=== PATIENT | female | born 1965 | race African-American/Black ===

== ENCOUNTER 2017-09-13 14:48 | Inpatient (IN) | payer OTHER ==
[2017-09-13 17:20] VITALS: BMI 17.8
--- NOTE | 2017-09-13 20:24 | HP ---
Admission ROS [facility] - [place] [employer] Chief Complaint: SEEKING IN PATIENT REHAB SERVICES AFTER DETOX Allergies/Adverse Reactions: Allergies Allergy/AdvReac Type Severity Reaction Status Date / Time egg Allergy Verified 09/13/17 18:48 Penicillins Allergy Verified 09/13/17 18:48 History of Present Illness: 52 y.o. female with long hx/o alcoholism here for inpatient rehab services. Client completed detox today at [facility] and was referred here. this is her first time here but is known to other inpatient detox/rehab services. Client reports longest clean time 6 YEARS. Reports pmhx of CLL remission for 5 years, Bipolar. Denies present and past si/hi and a/v hallucinations Exam Limitations: No Limitations - Ebola screening Have you traveled outside of the country in the last 21 days: No (N) Have you had contact with anyone from an Ebola affected area: No Have you been sick,other than usual withdrawal symptoms: No Do you have a fever: No - Review of Systems Constitutional: Loss of Appetite, Changes in sleep, Unintentional Wgt. Loss EENT: reports: Dental Problems (upper dentures) Respiratory: reports: No Symptoms reported Cardiac: reports: No Symptoms Reported GI: reports: Nausea, Poor Appetite, Poor Fluid Intake : reports: No Symptoms Reported Musculoskeletal: reports: No Symptoms Reported Integumentary: reports: No Symptoms Reported Neuro: reports: No Symptoms reported Endocrine: reports: No Symptoms Reported Hematology: reports: No Symptoms Reported Psychiatric: reports: Depressed Other Systems: Reviewed and Negative Patient History - Patient Medical History Hx Anemia: No Hx Asthma: No Hx Chronic Obstructive Pulmonary Disease (COPD): No Hx Cancer: Yes (CHRONIC LYMPHATIC LEUKEMIA REMISSION 5YEARS) Hx Cardiac Disorders: No Hx Congestive Heart Failure: No Hx Hypertension: No Hx Hypercholesterolemia: No Hx Pacemaker: No HX Cerebrovascular Accident: No Hx Seizures: No Hx Dementia: No Hx Diabetes: No Hx Gastrointestinal Disorders: Yes (GERD) Hx Liver Disease: No Hx Genitourinary Disorders: No Hx Sexually Transmitted Disorders: Yes (GENITAL HERPES) Hx Renal Disease (ESRD): No Hx Thyroid Disease: No Hx Human Immunodeficiency Virus (HIV): No Hx Hepatitis C: No Hx Depression: Yes Hx Suicide Attempt: No Hx Bipolar Disorder: Yes Hx Schizophrenia: No Other Medical History: DENIES - Patient Surgical History Past Surgical History: Yes Hx Abdominal Surgery: Yes (GASTRIC BYPASS) Hx Cholecystectomy: Yes Hx Hysterectomy: Yes (STILL WITH OVARIES) Other Surgical History: BILAT OVARIAN CYSTECTOMY Anesthesia Reaction: No - PPD History Previous Implant?: Yes Documented Results: Negative w/proof Implanted On Prior R Admission?: No Date: 09/09/17 (AT [facility]/ COPY PROVIDED) Results: 0MM PPD to be Administered?: No - Reproductive History Patient is a Female of Child Bearing Age (11 -55 yrs old): Yes LMP comment: MENAPAUSE Patient : No ([facility] [place]) - Smoking Cessation Smoking history: Current every day smoker Have you smoked in the past 12 months: Yes Aproximately how many cigarettes per day: 40 Cigars Per Day: 0 Hx Chewing Tobacco Use: No Initiated information on smoking cessation: Yes 'Breaking Loose' booklet given: 09/13/17 - Substance & Tx. History Hx Alcohol Use: Yes Hx Substance Use: Yes Substance Use Type: Alcohol, Marijuana Hx Substance Use Treatment: Yes ([facility]) - Substances Abused BEER Route: Oral Frequency: Daily Amount used: 12/12 OZ CANS Age of first use: 11 Date of Last Use: 09/06/17 THC Route: Smoking Frequency: 1-2 times per week Amount used: 2 JOINTS Age of first use: 52 Date of Last Use: 09/06/17 Family Disease History - Family Disease History Family History: Denies Family Disease History: Other: Mother (ETOH ABUSE), Brother (ETOH ABUSE) Admission Physical Exam S - Vital Signs Vital Signs: Vital Signs - 24 hr 09/13/17 17:18 Temperature 99.1 F Pulse Rate 90 Respiratory 19 Rate Blood Pressure 138/83 - Physical General Appearance: Yes: Appropriately Dressed, Tremorous (FELT), Anxious HEENTM: Yes: EOMI, Normocephalic, Normal Voice, MARLIN, Pharynx Normal, Other ( LARGE LYMPH NODE NOTED TO L NECK) Respiratory: Yes: Chest Non-Tender, Lungs Clear, Normal Breath Sounds, No Respiratory Distress, No Accessory Muscle Use Neck: Yes: Other (LARGE LYMPH NODE TO LEFT NECK) Breast: Yes: Breast Exam Deferred Cardiology: Yes: Regular Rhythm, S1, S2, Tachycardia Abdominal: Yes: Non Tender, Soft, Surgical Scar Genitourinary: Yes: Within Normal Limits Back: Yes: Normal Inspection Musculoskeletal: Yes: full range of Motion, Gait Steady Extremities: Yes: Normal Capillary Refill, Normal Range of Motion, Non-Tender, Tremors Neurological: Yes: 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 NML intact, Fully Oriented, Alert, Motor Strength 5/5 Integumentary: Yes: Normal Color, Dry, Warm Lymphatic: Yes: Within Normal Limits - Diagnostic (1) Uncomplicated alcohol dependence Current Visit: Yes Status: Chronic (2) Cannabis abuse, uncomplicated Current Visit: Yes Status: Chronic (3) Nicotine dependence Current Visit: Yes Status: Chronic Qualifiers: Nicotine product type: cigarettes Substance use status: uncomplicated Qualified Code(s): F17.210 - Nicotine dependence, cigarettes, uncomplicated (4) Drug-induced mood disorder Current Visit: Yes Status: Suspected (5) Weight loss Current Visit: Yes Status: Chronic (6) GERD (gastroesophageal reflux disease) Current Visit: Yes Status: Chronic Qualifiers: Esophagitis presence: esophagitis presence not specified Qualified Code(s) : K21.9 - Gastro-esophageal reflux disease without esophagitis Cleared for Admission [facility] - Detox or Rehab Detox Regimen/Protocol: Not Applicable Claeared for Rehab Admission: Yes [facility] Breath Alcohol Content Breath Alcohol Content: 0 Urine Pregancy Test - Result Urine Test Results: Negative- NO Line Present Urine Drug Screen - Results Drug Screen Negative: No Urine Drug Screen Results: THC-Marijuana, BZO-Benzodiazepines Inpatient Rehab Admission - Initial Determination Are CD services needed?: Yes Free of communicable disease: Yes Not in need of hospitalization: Yes - Rehab Admission Criteria Previous failed treatment: Yes Poor recovery environment: Yes Comorbidities: Yes Lacks judgement: Yes Patient is meeting Inpatient Rehab admission criteria:: Yes
[2017-09-13] MEDS ORDERED: LOPERAMIDE HCL 2 MG CAPSULE PO PRN (20:36)
[2017-09-13] MEDS ORDERED: IBUPROFEN 400 MG TABLET (FP) PO PRN (20:36)
[2017-09-13] MEDS ORDERED: MAGNESIUM CITRATE 300 ML BOTTLE PO PRN (20:36)
[2017-09-13] MEDS ORDERED: hydrOXYzine PAMOATE 50 MG CAPSULE (FP) PO PRN (20:36)
[2017-09-13] MEDS ORDERED: ACETAMINOPHEN 325 MG TABLET (FP) PO PRN (20:36)
[2017-09-13] MEDS ORDERED: MENTHOL/PHENOL 1 EACH UD MM PRN (20:36)
[2017-09-13] MEDS ORDERED: P-EPHED 60MG/TRIPROLIDI 2.5MG TABLET PO PRN (20:36)
[2017-09-13] MEDS ORDERED: MAG HYDROX/AL HYDROX/SIMETH 30 ML UNIT-DOSE CUP PO PRN (20:36)
[2017-09-13] MEDS ORDERED: NICOTINE POLACRILEX 4 MG GUM BC PRN (20:36)
[2017-09-13] MEDS ORDERED: guaiFENesin/D-METHORPHAN HB 10 ML UNIT-DOSE CUPS PO PRN (20:36)
[2017-09-13] MEDS ORDERED: MELATONIN 5 MG TABLETS PO PRN (22:00)
[2017-09-13] MEDS: PANTOPRAZOLE 40 MG TABLET (FP) PO SCH (23:10)
[2017-09-13] MEDS: THIAMINE HCL 100 MG TABLET (FP) PO SCH (23:20)
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
[2017-09-14] MEDS ORDERED: MEGESTROL ACETATE 40 MG TABLET PO SCH (10:00)
[2017-09-14] MEDS: NICOTINE 21 MG/24 HOURS TOPICAL PATCH TD SCH (10:21)
[2017-09-14] MEDS: PRENATAL VITAMINS W/ FOLIC ACID TABLET (FP) PO SCH (10:21)
[2017-09-14] MEDS: PANTOPRAZOLE 40 MG TABLET (FP) PO SCH ×2 (10:21→21:23)
--- NOTE | 2017-09-14 12:04 | EKG ---
Test Reason : Blood Pressure : / mmHG Vent. Rate : 065 BPM Atrial Rate : 065 BPM P-R Int : 136 ms QRS Dur : 084 ms QT Int : 396 ms P-R-T Axes : 069 049 044 degrees QTc Int : 411 ms NORMAL SINUS RHYTHM WITH SINUS ARRHYTHMIA NORMAL ECG NO PREVIOUS ECGS AVAILABLE Confirmed by QUAN MEDINA, JENNIFER ([id number]) on 09/14/2017 12:04:26 PM Referred By: Confirmed By:JENNIFER GLASS MD
[2017-09-14] MEDS ORDERED: LURASIDONE HCL 40 MG TABLET PO SCH (12:15)
[2017-09-14] MEDS ORDERED: LURASIDONE HCL 80 MG TABLET PO SCH (12:15)
--- NOTE | 2017-09-14 14:45 | PN ---
S Progress Note Note: PATIENT C/O YELLOW VAGINAL DISCHARGE. DENIES DYSURIA, FREQUENCY AND FEVER. Vital Signs Temperature 97.9 F 09/14/17 13:53 Pulse Rate 77 09/14/17 13:53 Respiratory Rate 18 09/14/17 13:53 Blood Pressure 130/83 09/14/17 13:53 O2 Sat by Pulse Oximetry (%) SUBJ: +YELLOW DISCHARGE, FOUL SMELLING. NO ITCHING OR FREQUENCY REPORTED. DENIES FEVER, SOB AND CP. OBJ: GENERAL: SKIN WARM AND DRY. AFEBRILE SKIN: WARM AND DRY GI: FLAT, NO DISTENTION : NO PELVIC TENDERNESS. A/P; VAGINAL DISCHARGE WILL CHECK URINE FOR GC/CHLAMYDIA/TRICH UA PENDING INCREASE ORAL FLUIDS CONTINUE TO MONITOR CLINICALLY
[2017-09-14] MEDS: NALTREXONE HCL 50 MG TABLET PO SCH ×2 (15:17→21:45)
[2017-09-14] MEDS: BENZTROPINE MESYLATE 1 MG TABLET (FP) PO SCH ×2 (15:18→21:25)
[2017-09-14] MEDS: VENLAFAXINE HCL 75 MG E.R. CAPSULES (FP) PO SCH (15:18)
[2017-09-14] MEDS: LURASIDONE HCL 40 MG, LURASIDONE HCL 20 MG PO SCH (15:21)
[2017-09-14] MEDS ORDERED: PT OWN MED DRAWER 7, Y5N ONE ×2 (15:26→21:27)
--- NOTE | 2017-09-14 15:26 | PN ---
[facility] Progress Note Note: Patient was transferred to which is a women unit. When meeting with patient this morning, she told newspaper writer that she did not feel comfortable among so many men and was thinking of leaving. As she reported during the interview, she has issues with men. She was happy and welcomed the transfer
[2017-09-14 16:06] LABS: HEMATOCRIT 32.2 % (32.4-45.2); HEMOGLOBIN 10.8 GM/dL (10.7-15.3); MCHC 33.5 g/dl (32.0-36.0); MEAN CELL VOLUME 104.4 fl (80-96); MEAN PLT VOLUME 7.9 fl (7.5-11.1); PLATELET COUNT 123 K/MM3 (134-434); RBC 3.09 M/mm3 (3.60-5.2); RDW 14.8 % (11.6-15.6); WHITE BLOOD COUNT 10.2 K/mm3 (4.0-10.0)
[2017-09-14 16:35] LABS: CHLORIDE 108 mmol/L (98-107); POTASSIUM 3.5 mmol/L (3.5-5.1); SODIUM 143 mmol/L (136-145)
[2017-09-14 17:07] LABS: ALBUMIN 3.4 g/dl (3.4-5.0); ALK PHOS 49 U/L (45-117); ANION GAP 9 (8-16); BILIRUBIN,TOTAL 0.4 mg/dL (0.2-1.0); BLOOD UREA NITROGEN 10 mg/dL (7-18); CALCIUM 8.5 mg/dL (8.5-10.1); CO2 26 mmol/L (21-32); CREATININE 0.6 mg/dL (0.55-1.02); GLUCOSE,RANDOM 75 mg/dL (74-106); SGOT/AST 19 U/L (15-37); SGPT/ALT 37 U/L (12-78); TOT PROT 5.4 g/dl (6.4-8.2)
[2017-09-14 20:15] LABS: URINE APPEARANCE SLCLOUDY; URINE BILIRUBIN NEGATIVE (<2.0 mg/dL); URINE BLOOD NEGATIVE (NEGATIVE); URINE COLOR AMBER; URINE GLUCOSE (UA) 1+ (NEGATIVE); URINE KETONE TRACE (NEGATIVE); URINE NITRITE NEGATIVE (NEGATIVE); URINE PROTEIN NEGATIVE (NEGATIVE); URINE UROBILINOGEN 4.0 E.U/dl mg/dL (0.2-1.0)
[2017-09-14 20:21] LABS: URINE LEUK ESTERASE 2+ (NEGATIVE)
[2017-09-14 20:24] LABS: EPI CELLS RARE /HPF (FEW); URINE MUCUS RARE
[2017-09-14] MEDS ORDERED: QUEtiapine FUMARATE 200 MG TABLET ONE (21:23)
[2017-09-14] MEDS ORDERED: QUEtiapine FUMARATE 50 MG TABLET ONE (21:23)
[2017-09-14] MEDS: QUETIAPINE FUMARATE 200 MG, QUETIAPINE FUMARATE 50 MG PO SCH (21:23)
[2017-09-14] MEDS: DIVALPROEX SODIUM 500 MG TABLET E.C. PO SCH (21:24)
[2017-09-14] MEDS: THIAMINE HCL 100 MG TABLET (FP) PO SCH (21:27)
[2017-09-14] MEDS ORDERED: QUEtiapine FUMARATE 200 MG TABLET PO SCH (22:00)
[2017-09-15] MEDS ORDERED: PT OWN MED DRAWER 7, Y5N ONE ×3 (06:43→21:32)
[2017-09-15] MEDS: MEGESTROL ACETATE 400 MG/10 ML UNIT DOSE CUP PO SCH (07:48)
[2017-09-15] MEDS: NALTREXONE HCL 50 MG TABLET PO SCH ×2 (09:19→21:32)
[2017-09-15] MEDS: BENZTROPINE MESYLATE 1 MG TABLET (FP) PO SCH ×2 (09:19→21:30)
[2017-09-15] MEDS: LURASIDONE HCL 40 MG, LURASIDONE HCL 20 MG PO SCH (09:20)
[2017-09-15] MEDS: NICOTINE 21 MG/24 HOURS TOPICAL PATCH TD SCH (09:21)
[2017-09-15] MEDS: PANTOPRAZOLE 40 MG TABLET (FP) PO SCH ×2 (09:21→21:30)
[2017-09-15] MEDS: VENLAFAXINE HCL 75 MG E.R. CAPSULES (FP) PO SCH (09:21)
[2017-09-15] MEDS: PRENATAL VITAMINS W/ FOLIC ACID TABLET (FP) PO SCH (09:21)
[2017-09-15] MEDS: FLUTICASONE PROP 0.05% 16 GM NASAL SPRAY NS SCH (09:23)
[2017-09-15] MEDS: DOCUSATE SODIUM 100 MG CAPSULE (FP) PO SCH ×2 (15:06→21:30)
[2017-09-15] MEDS ORDERED: QUEtiapine FUMARATE 200 MG TABLET ONE (19:40)
[2017-09-15] MEDS ORDERED: QUEtiapine FUMARATE 50 MG TABLET ONE (19:41)
[2017-09-15] MEDS: DIVALPROEX SODIUM 500 MG TABLET E.C. PO SCH (21:30)
[2017-09-15] MEDS: THIAMINE HCL 100 MG TABLET (FP) PO SCH (21:30)
[2017-09-15] MEDS: QUETIAPINE FUMARATE 200 MG, QUETIAPINE FUMARATE 50 MG PO SCH (21:30)
[2017-09-15] MEDS ORDERED: TRIMETHOBENZAMIDE HCL 200MG/2ML INJ IM ONE (22:22)
--- NOTE | 2017-09-15 22:55 | PN ---
S Progress Note Note: According to Ms. Terri Roberson, patient vomited x 2. Vital Signs Temperature 98.2 F 09/15/17 07:14 Pulse Rate 71 09/15/17 07:14 Respiratory Rate 18 09/15/17 07:14 Blood Pressure 122/77 09/15/17 07:14 O2 Sat by Pulse Oximetry (%) Action: Tigan 200mg intramuscular ordered
[2017-09-16 03:33] LABS: URINE APPEARANCE SLCLOUDY; URINE BILIRUBIN NEGATIVE (<2.0 mg/dL); URINE BLOOD NEGATIVE (NEGATIVE); URINE COLOR AMBER; URINE GLUCOSE (UA) NEGATIVE (NEGATIVE); URINE KETONE TRACE (NEGATIVE); URINE NITRITE NEGATIVE (NEGATIVE); URINE PROTEIN NEGATIVE (NEGATIVE); URINE UROBILINOGEN 4.0 E.U/dl mg/dL (0.2-1.0)
[2017-09-16 03:39] LABS: URINE LEUK ESTERASE 3+ (NEGATIVE)
[2017-09-16 03:44] LABS: EPI CELLS RARE /HPF (FEW); URINE MUCUS RARE
[2017-09-16] MEDS ORDERED: PT OWN MED DRAWER 7, Y5N ONE ×4 (05:53→21:30)
[2017-09-16] MEDS: DOCUSATE SODIUM 100 MG CAPSULE (FP) PO SCH ×3 (06:39→21:27)
[2017-09-16] MEDS: MEGESTROL ACETATE 400 MG/10 ML UNIT DOSE CUP PO SCH (08:17)
[2017-09-16] MEDS: PRENATAL VITAMINS W/ FOLIC ACID TABLET (FP) PO SCH (10:23)
[2017-09-16] MEDS: PANTOPRAZOLE 40 MG TABLET (FP) PO SCH ×2 (10:23→21:27)
[2017-09-16] MEDS: BENZTROPINE MESYLATE 1 MG TABLET (FP) PO SCH ×2 (10:23→21:31)
[2017-09-16] MEDS: FLUTICASONE PROP 0.05% 16 GM NASAL SPRAY NS SCH (10:23)
[2017-09-16] MEDS: VENLAFAXINE HCL 75 MG E.R. CAPSULES (FP) PO SCH (10:23)
[2017-09-16] MEDS: LURASIDONE HCL 40 MG, LURASIDONE HCL 20 MG PO SCH (10:24)
[2017-09-16] MEDS: NICOTINE 21 MG/24 HOURS TOPICAL PATCH TD SCH (10:28)
[2017-09-16] MEDS: NALTREXONE HCL 50 MG TABLET PO SCH ×2 (10:29→21:31)
--- NOTE | 2017-09-16 11:50 | PN ---
[facility] Progress Note Note: Patient seen for vomiting x 2. Last night and this morning. Patient also seen for follow up labs. Laboratory Tests 09/14/17 09/14/17 09/14/17 00:00 09:00 09:00 WBC RBC Hgb Hct MCV MCH MCHC RDW Plt Count MPV Sodium 143 Potassium 3.5 Chloride 108 H Carbon Dioxide 26 Anion Gap 9 BUN 10 Creatinine 0.6 Creat Clearance w eGFR > 60 Random Glucose 75 Calcium 8.5 Total Bilirubin 0.4 AST 19 ALT 37 Alkaline Phosphatase 49 Total Protein 5.4 L Albumin 3.4 Urine Color Mehnaz Urine Appearance Slcloudy Urine pH 6.0 Ur Specific [place] 1.026 Urine Protein Negative Urine Glucose (UA) 1+ H Urine Ketones Trace H Urine Blood Negative Urine Nitrite Negative Urine Bilirubin Negative Urine Urobilinogen 4.0 e.u/dl H Ur Leukocyte Esterase 2+ H Urine WBC (Auto) 38 Urine RBC (Auto) 12 Ur Epithelial Cells Rare Urine Mucus Rare Valproic Acid RPR Titer Nonreactive Hep C Ab Diagnostic 09/14/17 09/14/17 09/14/17 09:00 09:00 12:20 WBC 10.2 H RBC 3.09 L Hgb 10.8 Hct 32.2 L MCV 104.4 H MCH 35.0 H MCHC 33.5 RDW 14.8 Plt Count 123 L MPV 7.9 Sodium Potassium Chloride Carbon Dioxide Anion Gap BUN Creatinine Creat Clearance w eGFR Random Glucose Calcium Total Bilirubin AST ALT Alkaline Phosphatase Total Protein Albumin Urine Color Urine Appearance Urine pH Ur Specific [place] Urine Protein Urine Glucose (UA) Urine Ketones Urine Blood Urine Nitrite Urine Bilirubin Urine Urobilinogen Ur Leukocyte Esterase Urine WBC (Auto) Urine RBC (Auto) Ur Epithelial Cells Urine Mucus Valproic Acid 54.422 RPR Titer Hep C Ab Diagnostic <0.1 09/15/17 15:10 WBC RBC Hgb Hct MCV MCH MCHC RDW Plt Count MPV Sodium Potassium Chloride Carbon Dioxide Anion Gap BUN Creatinine Creat Clearance w eGFR Random Glucose Calcium Total Bilirubin AST ALT Alkaline Phosphatase Total Protein Albumin Urine Color Mehnaz Urine Appearance Slcloudy Urine pH 6.0 Ur Specific [place] 1.024 Urine Protein Negative Urine Glucose (UA) Negative Urine Ketones Trace H Urine Blood Negative Urine Nitrite Negative Urine Bilirubin Negative Urine Urobilinogen 4.0 e.u/dl H Ur Leukocyte Esterase 3+ H Urine WBC (Auto) 24 Urine RBC (Auto) 34 Ur Epithelial Cells Rare Urine Mucus Rare Valproic Acid RPR Titer Hep C Ab Diagnostic Vital Signs Temperature 98.5 F 09/16/17 07:25 Pulse Rate 73 09/16/17 07:25 Respiratory Rate 18 09/16/17 07:25 Blood Pressure 117/81 09/16/17 07:25 O2 Sat by Pulse Oximetry (%) Subj: Patient denies diarrhea. Has episodes of nausea and vomiting x 2. Afebrile. Continue to have foul smelling vaginal discharge. Obj: General: alert and oriented x 3. In no acute distress Skin: afebrile, warm and dry Car: S1S2 Resp: CTA BL GI: soft, BS+, NT A/P UTI GC/ CHlamydia and TRICH result pending UA +3 Leukocytes N/V Will increase oral fluids Rest prn Zofran for N/V Start Bactrim DS one tab BID x 3 days continue to monitor clinically
[2017-09-16] MEDS: ONDANSETRON *ODT* 4 MG TABLET SL PRN (13:18)
[2017-09-16] MEDS: OXYMETAZOLINE 0.05% NASAL SOLUTION 15 ML BOTTLE NS PRN ×2 (13:19→21:28)
--- NOTE | 2017-09-16 17:00 | PN ---
Psychiatric Progress Note Vital Signs: Vital Signs Period Temp Pulse Resp BP Sys/Saha Pulse Ox Last 24 Hr 98.3 F-98.5 F 73-83 18-18 117-145/81-81 Date of Session: 09/16/17 Chief Complaint:: "Hugo still having sleeping difficulties,very interrupted sleep pattern. HPI: Patient addressed Alcohol dependence comorbid with Bipolar II disorder. ROS: H/O Gastric bypass,H/O Cholecystectomy,H/O Ovarain cystectomy,H/O Lymphocytic anemia. Current Medications: Active Medications Generic Name Dose Route Start Last Admin Trade Name Freq PRN Reason Stop Dose Admin Acetaminophen 650 mg 09/13/17 20:36 09/16/17 00:11 Tylenol - PO 650 mg Q4H PRN Administration FEVER Al Hydroxide/Mg Hydroxide 30 ml 09/13/17 20:36 Mylanta Oral Suspension - PO Q6H PRN DYSPEPSIA Benztropine Mesylate 0.5 mg 09/14/17 12:30 09/16/17 10:23 Cogentin - PO 0.5 mg BID KEYONNA Administration Divalproex Sodium 1,500 mg 09/14/17 22:00 09/15/17 21:30 Depakote - PO 1,500 mg HS KEYONNA Administration Docusate Sodium 100 mg 09/15/17 15:00 09/16/17 14:44 Colace - PO 100 mg TID KEYONNA Administration Eucalyptus/Menthol/Phenol/Sorbitol 1 each 09/13/17 20:36 Cepastat Lozenge - MM Q4H PRN SORE THROAT Guaifenesin 10 ml 09/13/17 20:36 Robitussin Dm - PO Q6H PRN COUGH Hydroxyzine Pamoate 50 mg 09/13/17 20:36 Vistaril - PO Q4H PRN AGITATION Ibuprofen 400 mg 09/13/17 20:36 Motrin - PO Q6H PRN Pain level 4-6 Loperamide HCl 4 mg 09/13/17 20:36 Imodium - PO Q6H PRN DIARRHEA Lurasidone HCl 40 mg/ 60 mg 09/14/17 12:30 09/16/17 10:24 Lurasidone HCl 20 mg PO 60 mg DAILY KEYONNA Administration Magnesium Citrate 300 ml 09/13/17 20:36 Citroma - PO Q48H PRN CONSTIPATION Magnesium Hydroxide 30 ml 09/13/17 20:36 Milk Of Magnesia - PO DAILY PRN CONSTIPATION Megestrol Acetate 400 mg 09/15/17 08:00 09/16/17 08:17 Megace Oral Suspension - PO 400 mg DAILY@0800 KEYONNA Administration Melatonin 5 mg 09/13/17 22:00 Melatonin PO HS PRN INSOMNIA Naltrexone HCl 50 mg 09/14/17 12:30 09/16/17 10:29 Revia - PO 50 mg BID KEYONNA Administration Nicotine 21 mg 09/14/17 10:00 09/16/17 10:28 Nicoderm Patch - TD 21 mg DAILY KEYONNA Administration Nicotine Polacrilex 4 mg 09/13/17 20:36 Nicorette Gum - BC Q2H PRN NICOTINE REPLACEMENT RX Ondansetron HCl 8 mg 09/16/17 10:57 09/16/17 13:18 Zofran Odt - SL 8 mg Q8H PRN Administration NAUSEA AND/OR VOMITING Oxymetazoline HCl 2 spray 09/16/17 10:55 09/16/17 13:19 Afrin - NS 2 sprays BID PRN Administration NASAL CONGESTION Pantoprazole Sodium 40 mg 09/13/17 22:00 09/16/17 10:23 Protonix - PO 40 mg BID KEYONNA Administration Multivit/Folic Acid/Iron 1 tab 09/14/17 10:00 09/16/17 10:23 Vitamins (Sjr) - PO 1 tab DAILY KEYONNA Administration Pseudoephedrine/Triprolidine 1 combo 09/13/17 20:36 Actifed - PO TID PRN NASAL CONGESTION Quetiapine Fumarate 300 mg 09/16/17 22:00 Seroquel - PO HS KEYONNA Thiamine HCl 100 mg 09/13/17 22:00 09/15/17 21:30 Vitamin B1 - PO 100 mg HS KEYONNA Administration Trimethoprim/Sulfamethoxazole 1 each 09/16/17 22:00 Bactrim Ds - PO 09/19/17 21:59 BID KEYONNA Venlafaxine HCl 75 mg 09/14/17 12:30 09/16/17 10:23 Effexor Xr - PO 75 mg DAILY KEYONNA Administration Current Side Effect: No Lab tests ordered: No Lab tests reviewed: Yes Provider note:: Chart was revuewed ,'s notes appreciated.Patient addressed ongoing sleeping difficulties.Treatment plan including medication management has been discussed with the patient .Properties of Seroquel has been discussed with The patient including side efffects,benefits,dose adjustment.Seroquel 250 mg po hs will be adjusted to 300 mg po hs.Patient will continue [place],Latuda and Effexor as per plan. supportive therapy provided. Total face to face time:: 25 Mental Status Exam - Mental Status Exam Alert and Oriented to: Time, Place, Person Cognitive Function: Grossly Intact Patient Appearance: Well Groomed Mood: Anxious Affect: Mood Congruent, Labile Patient Behavior: Cooperative Speech Pattern: Clear Voice Loudness: Normal Thought Process: Goal Oriented Thought Disorder: Not Present Hallucinations: Denies Suicidal Ideation: Denies Homicidal Ideation: Denies Insight/Judgement: Fair Sleep: Difficulty falling asleep Appetite: Fair Muscle strength/Tone: Normal Gait/Station: Normal Psychiatric Treatment Plan - Problem List (1) Alcohol dependence Current Visit: Yes (2) Chronic lymphocytic leukemia Current Visit: Yes (3) Substance induced mood disorder Current Visit: Yes (4) Substance-induced sleep disorder Current Visit: Yes (5) UTI (urinary tract infection) Current Visit: Yes Qualifiers: Urinary tract infection type: site unspecified (6) Bipolar II disorder Current Visit: Yes
[2017-09-16] MEDS: THIAMINE HCL 100 MG TABLET (FP) PO SCH (21:26)
[2017-09-16] MEDS: DIVALPROEX SODIUM 500 MG TABLET E.C. PO SCH (21:27)
[2017-09-16] MEDS: QUEtiapine FUMARATE 300 MG TABLET PO SCH (21:30)
[2017-09-16] MEDS: SULFAMETHOXAZOLE/TRIMETHOPRIM 800MG/160MG D.S. TABLET PO SCH (21:31)
[2017-09-17] MEDS: DOCUSATE SODIUM 100 MG CAPSULE (FP) PO SCH ×3 (06:32→21:39)
[2017-09-17] MEDS: MEGESTROL ACETATE 400 MG/10 ML UNIT DOSE CUP PO SCH (07:00)
[2017-09-17] MEDS: SULFAMETHOXAZOLE/TRIMETHOPRIM 800MG/160MG D.S. TABLET PO SCH ×2 (09:45→21:39)
[2017-09-17] MEDS: BENZTROPINE MESYLATE 1 MG TABLET (FP) PO SCH ×2 (09:45→21:39)
[2017-09-17] MEDS: NALTREXONE HCL 50 MG TABLET PO SCH ×2 (09:46→21:40)
[2017-09-17] MEDS: PRENATAL VITAMINS W/ FOLIC ACID TABLET (FP) PO SCH (09:46)
[2017-09-17] MEDS: VENLAFAXINE HCL 75 MG E.R. CAPSULES (FP) PO SCH (09:46)
[2017-09-17] MEDS: PANTOPRAZOLE 40 MG TABLET (FP) PO SCH ×2 (09:46→21:39)
[2017-09-17] MEDS: NICOTINE 21 MG/24 HOURS TOPICAL PATCH TD SCH (09:47)
[2017-09-17] MEDS: LURASIDONE HCL 40 MG, LURASIDONE HCL 20 MG PO SCH (09:47)
[2017-09-17] MEDS ORDERED: PT OWN MED DRAWER 7, Y5N ONE (19:29)
[2017-09-17] MEDS: QUEtiapine FUMARATE 300 MG TABLET PO SCH (21:39)
[2017-09-17] MEDS: THIAMINE HCL 100 MG TABLET (FP) PO SCH (21:39)
[2017-09-17] MEDS: DIVALPROEX SODIUM 500 MG TABLET E.C. PO SCH (21:40)
[2017-09-18] MEDS: DOCUSATE SODIUM 100 MG CAPSULE (FP) PO SCH ×3 (06:36→21:15)
[2017-09-18] MEDS: MEGESTROL ACETATE 400 MG/10 ML UNIT DOSE CUP PO SCH (07:40)
[2017-09-18] MEDS ORDERED: PT OWN MED DRAWER 7, Y5N ONE ×4 (08:13→21:17)
[2017-09-18] MEDS: SULFAMETHOXAZOLE/TRIMETHOPRIM 800MG/160MG D.S. TABLET PO SCH ×2 (09:56→21:14)
[2017-09-18] MEDS: BENZTROPINE MESYLATE 1 MG TABLET (FP) PO SCH ×2 (09:56→21:15)
[2017-09-18] MEDS: VENLAFAXINE HCL 75 MG E.R. CAPSULES (FP) PO SCH (09:57)
[2017-09-18] MEDS: NICOTINE 21 MG/24 HOURS TOPICAL PATCH TD SCH (09:57)
[2017-09-18] MEDS: PANTOPRAZOLE 40 MG TABLET (FP) PO SCH ×2 (09:57→21:14)
[2017-09-18] MEDS: PRENATAL VITAMINS W/ FOLIC ACID TABLET (FP) PO SCH (09:57)
[2017-09-18] MEDS: LURASIDONE HCL 40 MG, LURASIDONE HCL 20 MG PO SCH (10:00)
[2017-09-18] MEDS: NALTREXONE HCL 50 MG TABLET PO SCH ×2 (10:01→21:15)
[2017-09-18] MEDS: QUEtiapine FUMARATE 300 MG TABLET PO SCH (21:14)
[2017-09-18] MEDS: DIVALPROEX SODIUM 500 MG TABLET E.C. PO SCH (21:14)
[2017-09-18] MEDS: THIAMINE HCL 100 MG TABLET (FP) PO SCH (21:15)
[2017-09-18] MEDS: OXYMETAZOLINE 0.05% NASAL SOLUTION 15 ML BOTTLE NS PRN (21:17)
[2017-09-19] MEDS: DOCUSATE SODIUM 100 MG CAPSULE (FP) PO SCH ×3 (06:16→21:13)
[2017-09-19] MEDS: MEGESTROL ACETATE 400 MG/10 ML UNIT DOSE CUP PO SCH (07:54)
[2017-09-19] MEDS ORDERED: PT OWN MED DRAWER 7, Y5N ONE ×2 (09:03→21:15)
[2017-09-19] MEDS: PRENATAL VITAMINS W/ FOLIC ACID TABLET (FP) PO SCH (10:44)
[2017-09-19] MEDS: BENZTROPINE MESYLATE 1 MG TABLET (FP) PO SCH ×2 (10:45→21:17)
[2017-09-19] MEDS: VENLAFAXINE HCL 75 MG E.R. CAPSULES (FP) PO SCH (10:45)
[2017-09-19] MEDS: PANTOPRAZOLE 40 MG TABLET (FP) PO SCH ×2 (10:45→21:13)
[2017-09-19] MEDS: SULFAMETHOXAZOLE/TRIMETHOPRIM 800MG/160MG D.S. TABLET PO SCH (10:45)
[2017-09-19] MEDS: LURASIDONE HCL 40 MG, LURASIDONE HCL 20 MG PO SCH (10:46)
[2017-09-19] MEDS: NICOTINE 21 MG/24 HOURS TOPICAL PATCH TD SCH (10:47)
[2017-09-19] MEDS: NALTREXONE HCL 50 MG TABLET PO SCH ×2 (10:48→21:16)
[2017-09-19] MEDS: OXYMETAZOLINE 0.05% NASAL SOLUTION 15 ML BOTTLE NS PRN ×2 (10:48→21:17)
[2017-09-19] MEDS: COLLOIDAL OATMEAL 1 BAR EACH TP PRN (13:30)
[2017-09-19] MEDS: MAGNESIUM HYDROX 2400MG/30ML ORAL SUSPENSION 30 ML CUP PO PRN (13:30)
--- NOTE | 2017-09-19 18:53 | PN ---
[facility] Progress Note Note: Patient c/o of constipation x 7 days. Reports she was able to move her bowels today after taking a dose of milk of megnesia, but when she sat in the bathroom she had some fecal matter that was left in her rectum, and was able to manually extract the fecal matter. C/O of white itchy vaginal discharge after taking abx for UTI. Denies SOB, CP, abdominal pain. Vital Signs Temperature 98.5 F 09/19/17 07:04 Pulse Rate 78 09/19/17 07:04 Respiratory Rate 18 09/19/17 07:04 Blood Pressure 120/81 09/19/17 07:04 O2 Sat by Pulse Oximetry (%) Laboratory Last Values WBC 10.2 K/mm3 (4.0-10.0) H 09/14/17 09:00 RBC 3.09 M/mm3 (3.60-5.2) L 09/14/17 09:00 Hgb 10.8 GM/dL (10.7-15.3) 09/14/17 09:00 Hct 32.2 % (32.4-45.2) L 09/14/17 09:00 MCV 104.4 fl (80-96) H 09/14/17 09:00 MCH 35.0 pg (25.7-33.7) H 09/14/17 09:00 MCHC 33.5 g/dl (32.0-36.0) 09/14/17 09:00 RDW 14.8 % (11.6-15.6) 09/14/17 09:00 Plt Count 123 K/MM3 (134-434) L 09/14/17 09:00 MPV 7.9 fl (7.5-11.1) 09/14/17 09:00 Sodium 143 mmol/L (136-145) 09/14/17 09:00 Potassium 3.5 mmol/L (3.5-5.1) 09/14/17 09:00 Chloride 108 mmol/L (98-107) H 09/14/17 09:00 Carbon Dioxide 26 mmol/L (21-32) 09/14/17 09:00 Anion Gap 9 (8-16) 09/14/17 09:00 BUN 10 mg/dL (7-18) 09/14/17 09:00 Creatinine 0.6 mg/dL (0.55-1.02) 09/14/17 09:00 Creat Clearance w eGFR > 60 (>60) 09/14/17 09:00 Random Glucose 75 mg/dL (74-106) 09/14/17 09:00 Calcium 8.5 mg/dL (8.5-10.1) 09/14/17 09:00 Total Bilirubin 0.4 mg/dL (0.2-1.0) 09/14/17 09:00 AST 19 U/L (15-37) 09/14/17 09:00 ALT 37 U/L (12-78) 09/14/17 09:00 Alkaline Phosphatase 49 U/L (45-117) 09/14/17 09:00 Total Protein 5.4 g/dl (6.4-8.2) L 09/14/17 09:00 Albumin 3.4 g/dl (3.4-5.0) 09/14/17 09:00 Urine Color Mehnaz 09/15/17 15:10 Urine Appearance Slcloudy 09/15/17 15:10 Urine pH 6.0 (5.0-8.0) 09/15/17 15:10 Ur Specific [place] 1.024 (1.001-1.035) 09/15/17 15:10 Urine Protein Negative (NEGATIVE) 09/15/17 15:10 Urine Glucose (UA) Negative (NEGATIVE) 09/15/17 15:10 Urine Ketones Trace (NEGATIVE) H 09/15/17 15:10 Urine Blood Negative (NEGATIVE) 09/15/17 15:10 Urine Nitrite Negative (NEGATIVE) 09/15/17 15:10 Urine Bilirubin Negative (<2.0 mg/dL) 09/15/17 15:10 Urine Urobilinogen 4.0 e.u/dl mg/dL (0.2-1.0) H 09/15/17 15:10 Ur Leukocyte Esterase 3+ (NEGATIVE) H 09/15/17 15:10 Urine WBC (Auto) 24 /hpf (3-5) 09/15/17 15:10 Urine RBC (Auto) 34 /hpf (0-3) 09/15/17 15:10 Ur Epithelial Cells Rare /HPF (FEW) 09/15/17 15:10 Urine Mucus Rare 09/15/17 15:10 Valproic Acid 54.422 ug/ml (50-100) 09/14/17 12:20 RPR Titer Nonreactive (NONREACTIVE) 09/14/17 09:00 Hep C Ab Diagnostic <0.1 s/co ratio (0.0-0.9) 09/14/17 09:00 T. vaginalis (KELBY) Negative (Negative) 09/15/17 11:00 A/P Patient AO x3 in no apparent distress normal HR and rhythm no adventitious breath sounds BS x 4, non-tender non-distended patient ambulating in the unit Plan: take one more dose of milk of magnesia 30 ml fleet enema PRN increase fluids increase fiber if symptoms do not improve patient to be transfer to [facility] for further evaluation Continue to monitor
[2017-09-19] MEDS: SODIUM PHOSPHATE/NA BIPHOS 133 ML ENEMA PR ONE ×2 (20:29→22:35)
[2017-09-19] MEDS: THIAMINE HCL 100 MG TABLET (FP) PO SCH (21:12)
[2017-09-19] MEDS: DIVALPROEX SODIUM 500 MG TABLET E.C. PO SCH (21:12)
[2017-09-19] MEDS: QUEtiapine FUMARATE 300 MG TABLET PO SCH (21:13)
[2017-09-19] MEDS: CLOTRIMAZOLE 1% VAGINAL CREAM WITH APPLICATOR 45 GM TUBE VG SCH (21:16)
[2017-09-19] MEDS: MINERAL OIL/PETROLAT/WATER TOPICAL CREAM 113 GM JAR TP SCH (22:00)
[2017-09-20] MEDS ORDERED: PT OWN MED DRAWER 7, Y5N ONE ×4 (00:14→22:03)
[2017-09-20] MEDS: MEGESTROL ACETATE 400 MG/10 ML UNIT DOSE CUP PO SCH (08:29)
[2017-09-20] MEDS: DOCUSATE SODIUM 100 MG CAPSULE (FP) PO SCH ×3 (08:29→21:19)
[2017-09-20] MEDS: BENZTROPINE MESYLATE 1 MG TABLET (FP) PO SCH ×2 (09:51→21:19)
[2017-09-20] MEDS: VENLAFAXINE HCL 75 MG E.R. CAPSULES (FP) PO SCH (09:52)
[2017-09-20] MEDS: PRENATAL VITAMINS W/ FOLIC ACID TABLET (FP) PO SCH (09:52)
[2017-09-20] MEDS: MINERAL OIL/PETROLAT/WATER TOPICAL CREAM 113 GM JAR TP SCH ×2 (09:52→22:00)
[2017-09-20] MEDS: LURASIDONE HCL 40 MG, LURASIDONE HCL 20 MG PO SCH (09:53)
[2017-09-20] MEDS: NICOTINE 21 MG/24 HOURS TOPICAL PATCH TD SCH (09:54)
[2017-09-20] MEDS: PANTOPRAZOLE 40 MG TABLET (FP) PO SCH ×2 (09:54→21:19)
[2017-09-20] MEDS: NALTREXONE HCL 50 MG TABLET PO SCH ×2 (09:55→21:19)
[2017-09-20] MEDS: ONDANSETRON *ODT* 4 MG TABLET SL PRN (09:56)
[2017-09-20] MEDS: OXYMETAZOLINE 0.05% NASAL SOLUTION 15 ML BOTTLE NS PRN (09:57)
[2017-09-20] MEDS: MAGNESIUM HYDROX 2400MG/30ML ORAL SUSPENSION 30 ML CUP PO PRN (13:29)
[2017-09-20] MEDS ORDERED: LACTULOSE 20 GM/30 ML UDC (FOR ORAL USE ONLY) PO PRN (14:08)
--- NOTE | 2017-09-20 14:16 | PN ---
[facility] Progress Note Note: Patient reports relief with constipation sx from yesterday. As per patient is something that is chronic as a result of her bypass sx. Vital Signs Temperature 98.8 F 09/20/17 07:00 Pulse Rate 77 09/20/17 07:00 Respiratory Rate 18 09/20/17 07:00 Blood Pressure 151/82 09/20/17 07:00 O2 Sat by Pulse Oximetry (%) Patient Aox3 in no apparent distress No adventitious breath sounds BS x 4 non- tender, non distended ambulating in the unit with out difficulty Plan: increase fluids ambulate trial lactulose qhs prn continue to monitor
[2017-09-20 19:03] LABS: URINE APPEARANCE SLCLOUDY; URINE BILIRUBIN NEGATIVE (<2.0 mg/dL); URINE BLOOD NEGATIVE (NEGATIVE); URINE COLOR AMBER; URINE GLUCOSE (UA) NEGATIVE (NEGATIVE); URINE KETONE TRACE (NEGATIVE); URINE LEUK ESTERASE TRACE (NEGATIVE); URINE NITRITE NEGATIVE (NEGATIVE); URINE PROTEIN NEGATIVE (NEGATIVE); URINE UROBILINOGEN 4.0 E.U/dl mg/dL (0.2-1.0)
[2017-09-20 19:08] LABS: EPI CELLS RARE /HPF (FEW); URINE MUCUS RARE
[2017-09-20] MEDS: THIAMINE HCL 100 MG TABLET (FP) PO SCH (21:18)
[2017-09-20] MEDS: QUEtiapine FUMARATE 300 MG TABLET PO SCH (21:19)
[2017-09-20] MEDS: DIVALPROEX SODIUM 500 MG TABLET E.C. PO SCH (21:19)
[2017-09-20] MEDS: CLOTRIMAZOLE 1% VAGINAL CREAM WITH APPLICATOR 45 GM TUBE VG SCH (22:02)
[2017-09-21] MEDS: DOCUSATE SODIUM 100 MG CAPSULE (FP) PO SCH ×3 (07:00→21:23)
[2017-09-21] MEDS: MEGESTROL ACETATE 400 MG/10 ML UNIT DOSE CUP PO SCH (07:01)
[2017-09-21] MEDS: NALTREXONE HCL 50 MG TABLET PO SCH ×2 (10:04→21:24)
[2017-09-21] MEDS: BENZTROPINE MESYLATE 1 MG TABLET (FP) PO SCH ×2 (10:05→21:25)
[2017-09-21] MEDS: VENLAFAXINE HCL 75 MG E.R. CAPSULES (FP) PO SCH (10:05)
[2017-09-21] MEDS: PRENATAL VITAMINS W/ FOLIC ACID TABLET (FP) PO SCH (10:06)
[2017-09-21] MEDS: PANTOPRAZOLE 40 MG TABLET (FP) PO SCH ×2 (10:06→21:23)
[2017-09-21] MEDS: LURASIDONE HCL 40 MG, LURASIDONE HCL 20 MG PO SCH (10:07)
[2017-09-21] MEDS: NICOTINE 21 MG/24 HOURS TOPICAL PATCH TD SCH (10:08)
[2017-09-21] MEDS: MINERAL OIL/PETROLAT/WATER TOPICAL CREAM 113 GM JAR TP SCH ×2 (10:08→21:22)
[2017-09-21] MEDS ORDERED: PT OWN MED DRAWER 7, Y5N ONE (19:23)
[2017-09-21] MEDS: DIVALPROEX SODIUM 500 MG TABLET E.C. PO SCH (21:23)
[2017-09-21] MEDS: QUEtiapine FUMARATE 300 MG TABLET PO SCH (21:23)
[2017-09-21] MEDS: CLOTRIMAZOLE 1% VAGINAL CREAM WITH APPLICATOR 45 GM TUBE VG SCH (21:24)
[2017-09-21] MEDS: THIAMINE HCL 100 MG TABLET (FP) PO SCH (21:24)
[2017-09-22] MEDS: DOCUSATE SODIUM 100 MG CAPSULE (FP) PO SCH ×3 (06:17→21:17)
[2017-09-22] MEDS: MEGESTROL ACETATE 400 MG/10 ML UNIT DOSE CUP PO SCH (08:22)
[2017-09-22] MEDS: PRENATAL VITAMINS W/ FOLIC ACID TABLET (FP) PO SCH (10:05)
[2017-09-22] MEDS: VENLAFAXINE HCL 75 MG E.R. CAPSULES (FP) PO SCH (10:05)
[2017-09-22] MEDS: BENZTROPINE MESYLATE 1 MG TABLET (FP) PO SCH ×2 (10:05→21:15)
[2017-09-22] MEDS: PANTOPRAZOLE 40 MG TABLET (FP) PO SCH ×2 (10:05→21:14)
[2017-09-22] MEDS: NICOTINE 21 MG/24 HOURS TOPICAL PATCH TD SCH (10:06)
[2017-09-22] MEDS: LURASIDONE HCL 40 MG, LURASIDONE HCL 20 MG PO SCH (10:06)
[2017-09-22] MEDS: MINERAL OIL/PETROLAT/WATER TOPICAL CREAM 113 GM JAR TP SCH ×2 (10:07→21:18)
[2017-09-22] MEDS: NALTREXONE HCL 50 MG TABLET PO SCH ×2 (10:07→21:15)
[2017-09-22] MEDS ORDERED: PT OWN MED DRAWER 7, Y5N ONE ×3 (19:59→21:18)
[2017-09-22] MEDS: DIVALPROEX SODIUM 500 MG TABLET E.C. PO SCH (21:14)
[2017-09-22] MEDS: QUEtiapine FUMARATE 300 MG TABLET PO SCH (21:14)
[2017-09-22] MEDS: THIAMINE HCL 100 MG TABLET (FP) PO SCH (21:14)
[2017-09-22] MEDS: CLOTRIMAZOLE 1% VAGINAL CREAM WITH APPLICATOR 45 GM TUBE VG SCH (21:16)
[2017-09-23] MEDS: DOCUSATE SODIUM 100 MG CAPSULE (FP) PO SCH ×3 (06:22→21:48)
[2017-09-23] MEDS: MEGESTROL ACETATE 400 MG/10 ML UNIT DOSE CUP PO SCH (07:02)
[2017-09-23] MEDS ORDERED: PT OWN MED DRAWER 7, Y5N ONE ×3 (08:54→21:48)
[2017-09-23] MEDS: NALTREXONE HCL 50 MG TABLET PO SCH ×2 (10:04→21:49)
[2017-09-23] MEDS: PRENATAL VITAMINS W/ FOLIC ACID TABLET (FP) PO SCH (10:04)
[2017-09-23] MEDS: LURASIDONE HCL 40 MG, LURASIDONE HCL 20 MG PO SCH (10:04)
[2017-09-23] MEDS: NICOTINE 21 MG/24 HOURS TOPICAL PATCH TD SCH (10:04)
[2017-09-23] MEDS: PANTOPRAZOLE 40 MG TABLET (FP) PO SCH ×2 (10:05→21:49)
[2017-09-23] MEDS: MINERAL OIL/PETROLAT/WATER TOPICAL CREAM 113 GM JAR TP SCH ×2 (10:05→22:47)
[2017-09-23] MEDS: BENZTROPINE MESYLATE 1 MG TABLET (FP) PO SCH ×2 (10:05→21:48)
[2017-09-23] MEDS: VENLAFAXINE HCL 75 MG E.R. CAPSULES (FP) PO SCH (10:05)
[2017-09-23] MEDS: MAGNESIUM HYDROX 2400MG/30ML ORAL SUSPENSION 30 ML CUP PO PRN (10:07)
[2017-09-23] MEDS: DIVALPROEX SODIUM 500 MG TABLET E.C. PO SCH (21:49)
[2017-09-23] MEDS: QUEtiapine FUMARATE 300 MG TABLET PO SCH (21:49)
[2017-09-23] MEDS: THIAMINE HCL 100 MG TABLET (FP) PO SCH (21:49)
[2017-09-23] MEDS: CLOTRIMAZOLE 1% VAGINAL CREAM WITH APPLICATOR 45 GM TUBE VG SCH (22:46)
[2017-09-24] MEDS: DOCUSATE SODIUM 100 MG CAPSULE (FP) PO SCH ×3 (06:33→21:36)
[2017-09-24] MEDS: MEGESTROL ACETATE 400 MG/10 ML UNIT DOSE CUP PO SCH (07:03)
[2017-09-24] MEDS ORDERED: PT OWN MED DRAWER 7, Y5N ONE ×2 (08:54→22:47)
[2017-09-24] MEDS: PANTOPRAZOLE 40 MG TABLET (FP) PO SCH ×2 (10:03→21:36)
[2017-09-24] MEDS: NICOTINE 21 MG/24 HOURS TOPICAL PATCH TD SCH (10:03)
[2017-09-24] MEDS: NALTREXONE HCL 50 MG TABLET PO SCH ×2 (10:04→22:48)
[2017-09-24] MEDS: PRENATAL VITAMINS W/ FOLIC ACID TABLET (FP) PO SCH (10:04)
[2017-09-24] MEDS: VENLAFAXINE HCL 75 MG E.R. CAPSULES (FP) PO SCH (10:04)
[2017-09-24] MEDS: BENZTROPINE MESYLATE 1 MG TABLET (FP) PO SCH ×2 (10:04→21:35)
[2017-09-24] MEDS: LURASIDONE HCL 40 MG, LURASIDONE HCL 20 MG PO SCH (10:05)
[2017-09-24] MEDS: MINERAL OIL/PETROLAT/WATER TOPICAL CREAM 113 GM JAR TP SCH ×2 (10:06→21:38)
[2017-09-24] MEDS: THIAMINE HCL 100 MG TABLET (FP) PO SCH (21:35)
[2017-09-24] MEDS: QUEtiapine FUMARATE 300 MG TABLET PO SCH (21:35)
[2017-09-24] MEDS: DIVALPROEX SODIUM 500 MG TABLET E.C. PO SCH (21:39)
[2017-09-24] MEDS: OXYMETAZOLINE 0.05% NASAL SOLUTION 15 ML BOTTLE NS PRN (22:49)
[2017-09-24] MEDS: CLOTRIMAZOLE 1% VAGINAL CREAM WITH APPLICATOR 45 GM TUBE VG SCH (22:51)
[2017-09-25] MEDS: DOCUSATE SODIUM 100 MG CAPSULE (FP) PO SCH ×3 (06:37→21:17)
[2017-09-25] MEDS: MEGESTROL ACETATE 400 MG/10 ML UNIT DOSE CUP PO SCH (07:38)
[2017-09-25] MEDS: NICOTINE 21 MG/24 HOURS TOPICAL PATCH TD SCH (10:28)
[2017-09-25] MEDS: VENLAFAXINE HCL 75 MG E.R. CAPSULES (FP) PO SCH (10:29)
[2017-09-25] MEDS: NALTREXONE HCL 50 MG TABLET PO SCH ×2 (10:29→21:19)
[2017-09-25] MEDS: LURASIDONE HCL 40 MG, LURASIDONE HCL 20 MG PO SCH (10:29)
[2017-09-25] MEDS: PRENATAL VITAMINS W/ FOLIC ACID TABLET (FP) PO SCH (10:29)
[2017-09-25] MEDS: PANTOPRAZOLE 40 MG TABLET (FP) PO SCH ×2 (10:29→21:17)
[2017-09-25] MEDS: MINERAL OIL/PETROLAT/WATER TOPICAL CREAM 113 GM JAR TP SCH ×2 (10:29→21:18)
[2017-09-25] MEDS: BENZTROPINE MESYLATE 1 MG TABLET (FP) PO SCH ×2 (10:29→21:17)
[2017-09-25] MEDS: OXYMETAZOLINE 0.05% NASAL SOLUTION 15 ML BOTTLE NS PRN ×2 (10:32→21:16)
[2017-09-25] MEDS ORDERED: PT OWN MED DRAWER 7, Y5N ONE ×3 (20:20→22:55)
[2017-09-25] MEDS: QUEtiapine FUMARATE 300 MG TABLET PO SCH (21:17)
[2017-09-25] MEDS: THIAMINE HCL 100 MG TABLET (FP) PO SCH (21:17)
[2017-09-25] MEDS: DIVALPROEX SODIUM 500 MG TABLET E.C. PO SCH (21:17)
[2017-09-25] MEDS: CLOTRIMAZOLE 1% VAGINAL CREAM WITH APPLICATOR 45 GM TUBE VG SCH (21:18)
[2017-09-26] MEDS: DOCUSATE SODIUM 100 MG CAPSULE (FP) PO SCH ×3 (06:24→22:14)
[2017-09-26] MEDS: MEGESTROL ACETATE 400 MG/10 ML UNIT DOSE CUP PO SCH (07:32)
[2017-09-26] MEDS: NALTREXONE HCL 50 MG TABLET PO SCH ×2 (09:19→22:16)
[2017-09-26] MEDS: LURASIDONE HCL 40 MG, LURASIDONE HCL 20 MG PO SCH (09:19)
[2017-09-26] MEDS: MINERAL OIL/PETROLAT/WATER TOPICAL CREAM 113 GM JAR TP SCH ×2 (09:20→22:17)
[2017-09-26] MEDS: VENLAFAXINE HCL 75 MG E.R. CAPSULES (FP) PO SCH (09:20)
[2017-09-26] MEDS: BENZTROPINE MESYLATE 1 MG TABLET (FP) PO SCH ×2 (09:20→22:17)
[2017-09-26] MEDS: NICOTINE 21 MG/24 HOURS TOPICAL PATCH TD SCH (09:20)
[2017-09-26] MEDS: PANTOPRAZOLE 40 MG TABLET (FP) PO SCH ×2 (09:21→22:15)
[2017-09-26] MEDS: PRENATAL VITAMINS W/ FOLIC ACID TABLET (FP) PO SCH (09:21)
[2017-09-26] MEDS: ONDANSETRON *ODT* 4 MG TABLET SL PRN (09:21)
[2017-09-26] MEDS: OXYMETAZOLINE 0.05% NASAL SOLUTION 15 ML BOTTLE NS PRN (09:22)
[2017-09-26] MEDS ORDERED: PT OWN MED DRAWER 7, Y5N ONE (19:42)
[2017-09-26] MEDS: DIVALPROEX SODIUM 500 MG TABLET E.C. PO SCH (22:14)
[2017-09-26] MEDS: QUEtiapine FUMARATE 300 MG TABLET PO SCH (22:15)
[2017-09-26] MEDS: CLOTRIMAZOLE 1% VAGINAL CREAM WITH APPLICATOR 45 GM TUBE VG SCH (22:19)
[2017-09-26] MEDS: THIAMINE HCL 100 MG TABLET (FP) PO SCH (22:19)
[2017-09-27] MEDS ORDERED: PT OWN MED DRAWER 7, Y5N ONE ×3 (03:12→19:34)
[2017-09-27] MEDS: DOCUSATE SODIUM 100 MG CAPSULE (FP) PO SCH ×3 (06:03→22:13)
[2017-09-27] MEDS: MEGESTROL ACETATE 400 MG/10 ML UNIT DOSE CUP PO SCH (07:10)
[2017-09-27] MEDS: BENZTROPINE MESYLATE 1 MG TABLET (FP) PO SCH ×2 (10:14→22:14)
[2017-09-27] MEDS: PANTOPRAZOLE 40 MG TABLET (FP) PO SCH ×2 (10:14→22:13)
[2017-09-27] MEDS: VENLAFAXINE HCL 75 MG E.R. CAPSULES (FP) PO SCH (10:14)
[2017-09-27] MEDS: NALTREXONE HCL 50 MG TABLET PO SCH ×2 (10:15→22:14)
[2017-09-27] MEDS: PRENATAL VITAMINS W/ FOLIC ACID TABLET (FP) PO SCH (10:15)
[2017-09-27] MEDS: NICOTINE 21 MG/24 HOURS TOPICAL PATCH TD SCH (10:15)
[2017-09-27] MEDS: LURASIDONE HCL 40 MG, LURASIDONE HCL 20 MG PO SCH (10:15)
[2017-09-27] MEDS: OXYMETAZOLINE 0.05% NASAL SOLUTION 15 ML BOTTLE NS PRN (10:16)
[2017-09-27] MEDS: MINERAL OIL/PETROLAT/WATER TOPICAL CREAM 113 GM JAR TP SCH ×2 (10:17→22:12)
--- NOTE | 2017-09-27 14:37 | PN ---
S Progress Note Note: Patient continues with vaginal itch and discharge. one time dose diflucan 150 mg continue to monitor
[2017-09-27] MEDS ORDERED: FLUCONAZOLE 50 MG TABLET PO ONE (14:50)
[2017-09-27] MEDS: QUEtiapine FUMARATE 300 MG TABLET PO SCH (22:13)
[2017-09-27] MEDS: DIVALPROEX SODIUM 500 MG TABLET E.C. PO SCH (22:13)
[2017-09-27] MEDS: THIAMINE HCL 100 MG TABLET (FP) PO SCH (22:15)
[2017-09-28] MEDS ORDERED: PT OWN MED DRAWER 7, Y5N ONE ×2 (03:19→20:23)
[2017-09-28] MEDS: DOCUSATE SODIUM 100 MG CAPSULE (FP) PO SCH ×3 (06:15→21:19)
[2017-09-28] MEDS: MEGESTROL ACETATE 400 MG/10 ML UNIT DOSE CUP PO SCH (07:06)
[2017-09-28] MEDS: VENLAFAXINE HCL 75 MG E.R. CAPSULES (FP) PO SCH (10:42)
[2017-09-28] MEDS: BENZTROPINE MESYLATE 1 MG TABLET (FP) PO SCH ×2 (10:42→21:20)
[2017-09-28] MEDS: OXYMETAZOLINE 0.05% NASAL SOLUTION 15 ML BOTTLE NS PRN ×2 (10:43→21:22)
[2017-09-28] MEDS: PRENATAL VITAMINS W/ FOLIC ACID TABLET (FP) PO SCH (10:43)
[2017-09-28] MEDS: NALTREXONE HCL 50 MG TABLET PO SCH ×2 (10:43→21:19)
[2017-09-28] MEDS: PANTOPRAZOLE 40 MG TABLET (FP) PO SCH ×2 (10:43→21:19)
[2017-09-28] MEDS: LURASIDONE HCL 40 MG, LURASIDONE HCL 20 MG PO SCH (10:44)
[2017-09-28] MEDS: NICOTINE 21 MG/24 HOURS TOPICAL PATCH TD SCH (10:46)
[2017-09-28] MEDS: MINERAL OIL/PETROLAT/WATER TOPICAL CREAM 113 GM JAR TP SCH ×2 (10:46→21:21)
[2017-09-28] MEDS: ONDANSETRON *ODT* 4 MG TABLET SL PRN (12:14)
[2017-09-28] MEDS: QUEtiapine FUMARATE 300 MG TABLET PO SCH (21:19)
[2017-09-28] MEDS: DIVALPROEX SODIUM 500 MG TABLET E.C. PO SCH (21:19)
[2017-09-28] MEDS: THIAMINE HCL 100 MG TABLET (FP) PO SCH (21:20)
[2017-09-28] MEDS: COLLOIDAL OATMEAL 1 BAR EACH TP PRN (21:26)
[2017-09-29] MEDS ORDERED: PT OWN MED DRAWER 7, Y5N ONE ×4 (03:21→21:24)
[2017-09-29] MEDS: DOCUSATE SODIUM 100 MG CAPSULE (FP) PO SCH ×3 (06:24→21:19)
[2017-09-29] MEDS: MEGESTROL ACETATE 400 MG/10 ML UNIT DOSE CUP PO SCH (07:47)
[2017-09-29] MEDS: BENZTROPINE MESYLATE 1 MG TABLET (FP) PO SCH ×2 (10:03→21:20)
[2017-09-29] MEDS: PANTOPRAZOLE 40 MG TABLET (FP) PO SCH ×2 (10:04→21:19)
[2017-09-29] MEDS: PRENATAL VITAMINS W/ FOLIC ACID TABLET (FP) PO SCH (10:04)
[2017-09-29] MEDS: NALTREXONE HCL 50 MG TABLET PO SCH ×2 (10:04→21:19)
[2017-09-29] MEDS: VENLAFAXINE HCL 75 MG E.R. CAPSULES (FP) PO SCH (10:04)
[2017-09-29] MEDS: LURASIDONE HCL 40 MG, LURASIDONE HCL 20 MG PO SCH (10:05)
[2017-09-29] MEDS: NICOTINE 21 MG/24 HOURS TOPICAL PATCH TD SCH (10:05)
[2017-09-29] MEDS: MINERAL OIL/PETROLAT/WATER TOPICAL CREAM 113 GM JAR TP SCH ×2 (10:06→21:21)
[2017-09-29] MEDS: OXYMETAZOLINE 0.05% NASAL SOLUTION 15 ML BOTTLE NS PRN ×2 (10:07→21:23)
--- NOTE | 2017-09-29 15:35 | PN ---
[facility] Progress Note Note: Patient c/o of right floaters and chronic yellow / white vaginal discharge, reports was treated by ob/gyn nurse prior to admission. chronic left swollen lymph nod, monitor by oncologist at [facility]. Vital Signs Temperature 98.6 F 09/29/17 07:11 Pulse Rate 70 09/29/17 07:11 Respiratory Rate 18 09/29/17 07:11 Blood Pressure 140/83 09/29/17 07:11 O2 Sat by Pulse Oximetry (%) Laboratory Last Values WBC 10.2 K/mm3 (4.0-10.0) H 09/14/17 09:00 RBC 3.09 M/mm3 (3.60-5.2) L 09/14/17 09:00 Hgb 10.8 GM/dL (10.7-15.3) 09/14/17 09:00 Hct 32.2 % (32.4-45.2) L 09/14/17 09:00 MCV 104.4 fl (80-96) H 09/14/17 09:00 MCH 35.0 pg (25.7-33.7) H 09/14/17 09:00 MCHC 33.5 g/dl (32.0-36.0) 09/14/17 09:00 RDW 14.8 % (11.6-15.6) 09/14/17 09:00 Plt Count 123 K/MM3 (134-434) L 09/14/17 09:00 MPV 7.9 fl (7.5-11.1) 09/14/17 09:00 Sodium 143 mmol/L (136-145) 09/14/17 09:00 Potassium 3.5 mmol/L (3.5-5.1) 09/14/17 09:00 Chloride 108 mmol/L (98-107) H 09/14/17 09:00 Carbon Dioxide 26 mmol/L (21-32) 09/14/17 09:00 Anion Gap 9 (8-16) 09/14/17 09:00 BUN 10 mg/dL (7-18) 09/14/17 09:00 Creatinine 0.6 mg/dL (0.55-1.02) 09/14/17 09:00 Creat Clearance w eGFR > 60 (>60) 09/14/17 09:00 Random Glucose 75 mg/dL (74-106) 09/14/17 09:00 Calcium 8.5 mg/dL (8.5-10.1) 09/14/17 09:00 Total Bilirubin 0.4 mg/dL (0.2-1.0) 09/14/17 09:00 AST 19 U/L (15-37) 09/14/17 09:00 ALT 37 U/L (12-78) 09/14/17 09:00 Alkaline Phosphatase 49 U/L (45-117) 09/14/17 09:00 Total Protein 5.4 g/dl (6.4-8.2) L 09/14/17 09:00 Albumin 3.4 g/dl (3.4-5.0) 09/14/17 09:00 Urine Color Mehnaz 09/20/17 15:00 Urine Appearance Slcloudy 09/20/17 15:00 Urine pH 6.0 (5.0-8.0) 09/20/17 15:00 Ur Specific [place] 1.024 (1.001-1.035) 09/20/17 15:00 Urine Protein Negative (NEGATIVE) 09/20/17 15:00 Urine Glucose (UA) Negative (NEGATIVE) 09/20/17 15:00 Urine Ketones Trace (NEGATIVE) H 09/20/17 15:00 Urine Blood Negative (NEGATIVE) 09/20/17 15:00 Urine Nitrite Negative (NEGATIVE) 09/20/17 15:00 Urine Bilirubin Negative (<2.0 mg/dL) 09/20/17 15:00 Urine Urobilinogen 4.0 e.u/dl mg/dL (0.2-1.0) H 09/20/17 15:00 Ur Leukocyte Esterase Trace (NEGATIVE) 09/20/17 15:00 Urine WBC (Auto) 6 /hpf (3-5) 09/20/17 15:00 Urine RBC (Auto) 23 /hpf (0-3) 09/20/17 15:00 Ur Epithelial Cells Rare /HPF (FEW) 09/20/17 15:00 Urine Mucus Rare 09/20/17 15:00 Valproic Acid 54.422 ug/ml (50-100) 09/14/17 12:20 RPR Titer Nonreactive (NONREACTIVE) 09/14/17 09:00 Hep C Ab Diagnostic <0.1 s/co ratio (0.0-0.9) 09/14/17 09:00 T. vaginalis (KELBY) Negative (Negative) 09/15/17 11:00 A/P Patient AOx3, in no apparent distress PEERL, no sclera ictus No adventitious breath sounds skin intact + left cervical adenopathy no adventitious breath sounds Full ROM Plan: increase fluids repeat CBC and CMP continue to monitor
[2017-09-29] MEDS: DIVALPROEX SODIUM 500 MG TABLET E.C. PO SCH (21:18)
[2017-09-29] MEDS: QUEtiapine FUMARATE 300 MG TABLET PO SCH (21:19)
[2017-09-29] MEDS: THIAMINE HCL 100 MG TABLET (FP) PO SCH (21:19)
[2017-09-30] MEDS ORDERED: PT OWN MED DRAWER 7, Y5N ONE ×3 (05:51→21:30)
[2017-09-30] MEDS: MEGESTROL ACETATE 400 MG/10 ML UNIT DOSE CUP PO SCH (07:03)
[2017-09-30] MEDS: DOCUSATE SODIUM 100 MG CAPSULE (FP) PO SCH ×3 (07:03→21:26)
[2017-09-30] MEDS: NICOTINE 21 MG/24 HOURS TOPICAL PATCH TD SCH (10:25)
[2017-09-30] MEDS: LURASIDONE HCL 40 MG, LURASIDONE HCL 20 MG PO SCH (10:26)
[2017-09-30] MEDS: NALTREXONE HCL 50 MG TABLET PO SCH ×2 (10:26→21:29)
[2017-09-30] MEDS: PRENATAL VITAMINS W/ FOLIC ACID TABLET (FP) PO SCH (10:27)
[2017-09-30] MEDS: PANTOPRAZOLE 40 MG TABLET (FP) PO SCH ×2 (10:27→21:26)
[2017-09-30] MEDS: VENLAFAXINE HCL 75 MG E.R. CAPSULES (FP) PO SCH (10:27)
[2017-09-30] MEDS: BENZTROPINE MESYLATE 1 MG TABLET (FP) PO SCH ×2 (10:27→21:26)
[2017-09-30] MEDS: MINERAL OIL/PETROLAT/WATER TOPICAL CREAM 113 GM JAR TP SCH ×2 (10:30→21:27)
[2017-09-30] MEDS: OXYMETAZOLINE 0.05% NASAL SOLUTION 15 ML BOTTLE NS PRN ×2 (10:30→22:40)
[2017-09-30 15:37] LABS: HEMATOCRIT 36.6 % (32.4-45.2); HEMOGLOBIN 12.2 GM/dL (10.7-15.3); MCH 34.2 pg (25.7-33.7); MCHC 33.3 g/dl (32.0-36.0); MEAN CELL VOLUME 102.7 fl (80-96); MEAN PLT VOLUME 7.7 fl (7.5-11.1); PLATELET COUNT 172 K/MM3 (134-434); RBC 3.56 M/mm3 (3.60-5.2); RDW 13.9 % (11.6-15.6); WHITE BLOOD COUNT 13.2 K/mm3 (4.0-10.0)
[2017-09-30 16:20] LABS: ALBUMIN 3.8 g/dl (3.4-5.0); ANION GAP 10 (8-16); BLOOD UREA NITROGEN 19 mg/dL (7-18); CALCIUM 8.8 mg/dL (8.5-10.1); CHLORIDE 107 mmol/L (98-107); CO2 24 mmol/L (21-32); GLUCOSE,RANDOM 117 mg/dL (74-106); POTASSIUM 3.8 mmol/L (3.5-5.1); SODIUM 141 mmol/L (136-145)
[2017-09-30 16:24] LABS: ALK PHOS 45 U/L (45-117); BILIRUBIN,TOTAL 0.4 mg/dL (0.2-1.0); CREATININE 0.6 mg/dL (0.55-1.02); SGOT/AST 20 U/L (15-37); SGPT/ALT 25 U/L (12-78)
[2017-09-30] MEDS: DIVALPROEX SODIUM 500 MG TABLET E.C. PO SCH (21:25)
[2017-09-30] MEDS: THIAMINE HCL 100 MG TABLET (FP) PO SCH (21:26)
[2017-09-30] MEDS: QUEtiapine FUMARATE 300 MG TABLET PO SCH (21:26)
[2017-09-30 21:27] LABS: ANISOCYTOSIS 1+; MACROCYTOSIS 1+; PLATELET ESTIMATE ADEQUATE
[2017-10-01] MEDS ORDERED: PT OWN MED DRAWER 7, Y5N ONE ×2 (03:18→06:35)
[2017-10-01] MEDS: DOCUSATE SODIUM 100 MG CAPSULE (FP) PO SCH ×3 (06:32→21:18)
[2017-10-01] MEDS: OXYMETAZOLINE 0.05% NASAL SOLUTION 15 ML BOTTLE NS PRN ×2 (06:35→21:17)
[2017-10-01] MEDS: MEGESTROL ACETATE 400 MG/10 ML UNIT DOSE CUP PO SCH (07:31)
[2017-10-01] MEDS: BENZTROPINE MESYLATE 1 MG TABLET (FP) PO SCH ×2 (09:56→23:03)
[2017-10-01] MEDS: VENLAFAXINE HCL 75 MG E.R. CAPSULES (FP) PO SCH (09:57)
[2017-10-01] MEDS: MINERAL OIL/PETROLAT/WATER TOPICAL CREAM 113 GM JAR TP SCH ×2 (09:57→21:19)
[2017-10-01] MEDS: LURASIDONE HCL 40 MG, LURASIDONE HCL 20 MG PO SCH (09:58)
[2017-10-01] MEDS: PRENATAL VITAMINS W/ FOLIC ACID TABLET (FP) PO SCH (09:58)
[2017-10-01] MEDS: NICOTINE 21 MG/24 HOURS TOPICAL PATCH TD SCH (09:58)
[2017-10-01] MEDS: NALTREXONE HCL 50 MG TABLET PO SCH ×2 (09:59→23:03)
[2017-10-01] MEDS: PANTOPRAZOLE 40 MG TABLET (FP) PO SCH ×2 (09:59→21:19)
[2017-10-01] MEDS: QUEtiapine FUMARATE 300 MG TABLET PO SCH (21:17)
[2017-10-01] MEDS: THIAMINE HCL 100 MG TABLET (FP) PO SCH (21:18)
[2017-10-01] MEDS: DIVALPROEX SODIUM 500 MG TABLET E.C. PO SCH (21:18)
[2017-10-02] MEDS: DOCUSATE SODIUM 100 MG CAPSULE (FP) PO SCH ×3 (06:45→21:44)
[2017-10-02] MEDS: MEGESTROL ACETATE 400 MG/10 ML UNIT DOSE CUP PO SCH (07:02)
[2017-10-02] MEDS ORDERED: PT OWN MED DRAWER 7, Y5N ONE (08:07)
[2017-10-02] MEDS: MINERAL OIL/PETROLAT/WATER TOPICAL CREAM 113 GM JAR TP SCH ×2 (10:19→21:43)
[2017-10-02] MEDS: VENLAFAXINE HCL 75 MG E.R. CAPSULES (FP) PO SCH (10:19)
[2017-10-02] MEDS: BENZTROPINE MESYLATE 1 MG TABLET (FP) PO SCH ×2 (10:19→21:45)
[2017-10-02] MEDS: PRENATAL VITAMINS W/ FOLIC ACID TABLET (FP) PO SCH (10:20)
[2017-10-02] MEDS: LURASIDONE HCL 40 MG, LURASIDONE HCL 20 MG PO SCH (10:20)
[2017-10-02] MEDS: NALTREXONE HCL 50 MG TABLET PO SCH ×2 (10:20→21:45)
[2017-10-02] MEDS: PANTOPRAZOLE 40 MG TABLET (FP) PO SCH ×2 (10:20→21:44)
[2017-10-02] MEDS: NICOTINE 21 MG/24 HOURS TOPICAL PATCH TD SCH (10:21)
[2017-10-02] MEDS: DIVALPROEX SODIUM 500 MG TABLET E.C. PO SCH (21:43)
[2017-10-02] MEDS: QUEtiapine FUMARATE 300 MG TABLET PO SCH (21:44)
[2017-10-02] MEDS: THIAMINE HCL 100 MG TABLET (FP) PO SCH (21:44)
[2017-10-02] MEDS: MAGNESIUM HYDROX 2400MG/30ML ORAL SUSPENSION 30 ML CUP PO PRN (22:13)
[2017-10-03] MEDS: DOCUSATE SODIUM 100 MG CAPSULE (FP) PO SCH ×3 (06:07→21:31)
[2017-10-03] MEDS: MEGESTROL ACETATE 400 MG/10 ML UNIT DOSE CUP PO SCH (07:40)
[2017-10-03] MEDS ORDERED: PT OWN MED DRAWER 7, Y5N ONE (08:53)
[2017-10-03] MEDS: MINERAL OIL/PETROLAT/WATER TOPICAL CREAM 113 GM JAR TP SCH ×2 (10:36→21:32)
[2017-10-03] MEDS: PANTOPRAZOLE 40 MG TABLET (FP) PO SCH ×2 (10:37→21:31)
[2017-10-03] MEDS: VENLAFAXINE HCL 75 MG E.R. CAPSULES (FP) PO SCH (10:37)
[2017-10-03] MEDS: PRENATAL VITAMINS W/ FOLIC ACID TABLET (FP) PO SCH (10:37)
[2017-10-03] MEDS: NICOTINE 21 MG/24 HOURS TOPICAL PATCH TD SCH (10:38)
[2017-10-03] MEDS: NALTREXONE HCL 50 MG TABLET PO SCH ×2 (10:38→21:32)
[2017-10-03] MEDS: LURASIDONE HCL 40 MG, LURASIDONE HCL 20 MG PO SCH (10:38)
[2017-10-03] MEDS: BENZTROPINE MESYLATE 1 MG TABLET (FP) PO SCH ×2 (10:38→21:32)
[2017-10-03] MEDS: THIAMINE HCL 100 MG TABLET (FP) PO SCH (21:30)
[2017-10-03] MEDS: QUEtiapine FUMARATE 300 MG TABLET PO SCH (21:31)
[2017-10-03] MEDS: DIVALPROEX SODIUM 500 MG TABLET E.C. PO SCH (21:31)
[2017-10-03] MEDS: COLLOIDAL OATMEAL 1 BAR EACH TP PRN (22:22)
[2017-10-04] MEDS ORDERED: PT OWN MED DRAWER 7, Y5N ONE (05:54)
[2017-10-04] MEDS: DOCUSATE SODIUM 100 MG CAPSULE (FP) PO SCH (06:40)
[2017-10-04 07:11] VITALS: BP 126/86; PULSE 82; TEMP 98.4
[2017-10-04] MEDS: MEGESTROL ACETATE 400 MG/10 ML UNIT DOSE CUP PO SCH (07:14)
[2017-10-04] MEDS: MINERAL OIL/PETROLAT/WATER TOPICAL CREAM 113 GM JAR TP SCH (09:04)
[2017-10-04] MEDS: BENZTROPINE MESYLATE 1 MG TABLET (FP) PO SCH (09:04)
[2017-10-04] MEDS: VENLAFAXINE HCL 75 MG E.R. CAPSULES (FP) PO SCH (09:04)
[2017-10-04] MEDS: LURASIDONE HCL 40 MG, LURASIDONE HCL 20 MG PO SCH (09:05)
[2017-10-04] MEDS: NICOTINE 21 MG/24 HOURS TOPICAL PATCH TD SCH (09:05)
[2017-10-04] MEDS: NALTREXONE HCL 50 MG TABLET PO SCH (09:06)
[2017-10-04] MEDS: PRENATAL VITAMINS W/ FOLIC ACID TABLET (FP) PO SCH (09:06)
[2017-10-04] MEDS: PANTOPRAZOLE 40 MG TABLET (FP) PO SCH (09:06)
--- NOTE | 2017-10-05 16:55 | PN ---
[facility] Progress Note Note: completed this program 10/04/17.
== END 2017-10-04 09:55 | disposition home or self-care (01) | DRG 895 ==
LOC: YASAS 14:48 → Y3W 20:16 → Y3E 09-14 13:08
PROVIDERS: ADMIT Psychiatry & Neurology Psychiatry; ATTEND Psychiatry & Neurology Psychiatry
PROC: HZ42ZZZ Group Counseling for Substance Abuse Treatment, Cognitive-Behavioral (ICD-10-PCS; principal; 2017-09-13)
DX: F10.20 Alcohol dependence, uncomplicated (principal); F31.81 Bipolar II disorder; F19.282 Other psychoactive substance dependence with psychoactive substance-induced sleep disorder; N39.0 Urinary tract infection, site not specified; C91.11 Chronic lymphocytic leukemia of B-cell type in remission; F12.20 Cannabis dependence, uncomplicated; F17.210 Nicotine dependence, cigarettes, uncomplicated; F19.24 Other psychoactive substance dependence with psychoactive substance-induced mood disorder; K59.00 Constipation, unspecified; H43.399 Other vitreous opacities, unspecified eye; D72.829 Elevated white blood cell count, unspecified; R00.0 Tachycardia, unspecified; K21.9 Gastro-esophageal reflux disease without esophagitis; Z88.0 Allergy status to penicillin; Z98.84 Bariatric surgery status; Z87.898 Personal history of other specified conditions; Z87.42 Personal history of other diseases of the female genital tract; Z91.012 Allergy to eggs
CPT/HCPCS: 36415; 80053; 80164; 81003; 81015; 85025; 85027; 86593; 87491; 87591; 87661; 93005; 93010; Q0162